=== PATIENT | male | born 1935 | race Caucasian/White ===

== ENCOUNTER → 2018-01-26 | Outpatient (CLI) | payer MEDICARE, BC ==
[~2018-01-26] MED LIST: ALBU8.5H8 INH; ASPI-630 PO; ATOR40TA PO; BUDE10.2 IH; DIGO125T PO; DOCU-109 PO; DUTA0.5C13 PO; IOHEXOL 300 MG/ML 75 ML VIAL. IV ONE; MEMA10TA20 PO; RANI15SY PO; RANI300T PO; SOTA80TA48 PO; TAMS0.4C2 PO; TIOT18CA IH; VILA10TA PO; WARF-31 PO; WARF4TAB7 PO
--- NOTE | 2018-01-26 09:14 | RAD ---
Chest CTA History: Shortness of breath, tobaccoism. Technique: After bolus of intravenous contrast, CT imaging was performed of the chest. Multiplanar reconstruction images to include MIP reconstruction images are submitted. Exposure: One or more of the following individualized dose reduction techniques were utilized for this examination: 1. Automated exposure control 2. Adjustment of the mA and/or kV according to patient size 3. Use of iterative reconstruction technique. Contrast: 75 cc Omnipaque 300 Comparison: None Findings: No pulmonary embolism is identified. There is coronary calcification. There is left electronic cardiac device, also leads coursing from the right. There is dilatation ascending thoracic aorta up to about 4.9 cm. Aortic root measures about 4.6 cm. There are some calcifications of the aortic valvular leaflets. Ascending thoracic aorta is tortuous, maximal caliber about 3.7 cm. No significantly enlarged nodes are identified of the chest. Visualized liver is small. Major airways are patent. There is small 0.5 cm right middle lobe nodule axial image 77 series 4, small 0.5 cm subpleural right middle lobe nodule axial image 86, and tiny 0.2 cm right middle lobe nodule axial image 92. Impression: 1. No pulmonary embolism is identified, also no pleural fluid or lobar infiltrate. 2. There is coronary calcification. There are some calcifications of aortic valvular leaflets. 3. There is aneurysmal dilatation ascending thoracic aorta up to about 4.9 cm, also ectatic and tortuous descending thoracic aorta. 4. Visualized liver is small. 5. There are small pulmonary nodules, optional 12 month follow-up as for incidental pulmonary nodules of this size as per revised Fleischner guidelines in a high risk patient. Electronically signed by: Isauro Camargo MD (01/26/2018 9:11 AM) [id number]
== END | disposition home or self-care (01) ==
LOC: CT 07:44
PROVIDERS: ATTEND Family Medicine
DX: I77.810 Thoracic aortic ectasia (principal); I10 Essential (primary) hypertension; E78.5 Hyperlipidemia, unspecified; R91.8 Other nonspecific abnormal finding of lung field
CPT/HCPCS: 71275; Q9967

== ENCOUNTER → 2021-05-08 | Outpatient (CLI) | payer MEDICARE, BC ==
[~2021-05-08] MED LIST changes: +ALBU2.5V8 INH; -ALBU8.5H8 INH; -DIGO125T PO; +DIGO125T17 PO; -DUTA0.5C13 PO; -IOHEXOL 300 MG/ML 75 ML VIAL. IV ONE; +IOHEXOL 350 MG/ML 100 ML VIAL. IV ONE; -MEMA10TA20 PO; +MEMA10TA56 PO; +WARF4TAB64 PO; -WARF4TAB7 PO; +[UNRECOGNIZED DRUG - CODE] PO
--- NOTE | 2021-05-08 12:43 | RAD ---
Examination: CT angiography abdomen pelvis with IV contrast HISTORY: History of abdominal aortic aneurysm COMPARISON: None available TECHNIQUE: Axial CT angiographic images of abdomen pelvis were performed with IV contrast. Coronal an d sagittal 3-D MIP reformats are performed. Exposure: One or more of the following individualized dose reduction techniques were utilized for thi s examination: 1. Automated exposure control 2. Adjustment of the mA and/or kV according to patient size 3. Use of iterative reconstruction technique FINDINGS: Mild bibasilar lung atelectasis or infiltrates. No evidence of free air identified in the abdomen. Th e liver, spleen, adrenals grossly appears unremarkable. The stomach is mildly distended. The visualiz ed pancreas grossly appears unremarkable. The small bowel is nondilated. Feces and gas noted in the c olon. Multiple sigmoid colon diverticulosis. The celiac artery, superior mesenteric artery are patent . The proximal portion of the inferior mesenteric artery demonstrates no contrast within likely occlu jannette. The distal portion of the inferior mesenteric artery demonstrates some contrast within likely p atent. Infrarenal abdominal aortic aneurysm identified measuring 5.9 cm in transverse dimension with the aortobiiliac stent graft. The graft demonstrates contrast within and is patent. No evidence of en doleak identified. The bilateral kidneys enhance symmetrically. Cystic structure identified in the left kidney measuring 2.9 cm likely cyst. Moderate degenerative changes lumbar spine. IMPRESSION: 1. Infrarenal abdominal aortic aneurysm with aortobiiliac stent graft in place. No evidence of endol eak identified. 2. Multiple sigmoid colon diverticulosis. Electronically signed by: Viktor Smith MD (05/08/2021 12:40 PM) [id number]
== END ==
LOC: CT 10:21
PROVIDERS: ATTEND Family Medicine
DX: I71.4 Abdominal aortic aneurysm, without rupture (principal); K57.30 Diverticulosis of large intestine without perforation or abscess without bleeding; K31.89 Other diseases of stomach and duodenum
CPT/HCPCS: 74174; Q9967

== ENCOUNTER 2021-06-25 13:35 | Emergency (ER) | payer MEDICARE, BC ==
[~2021-06-25] VITALS: Ht 182.9 cm; Wt 128.6 kg
[~2021-06-25 13:35] MED LIST changes: -IOHEXOL 350 MG/ML 100 ML VIAL. IV ONE
--- NOTE | 2021-06-25 13:56 | PHYS DOC ---
Adult General HPI HPI Patient is a 85-year-old male presenting with for confusion. Onset was 24 hours ago without any noteworthy trauma, mechanism of injury, ingestion, exposure, sick contact or recent travel. Nothing known makes better or worse. Patient denies any pain and states he is asymptomatic. admits patient has longstanding history of dementia but over past 24 hours he has been more confused than usual. He has not been aggressive but admits he has been talking and saying things which are not typical for him. He denies any auditory or visual hallucinations. No major changes in home medications. He is followed closely in outpatient setting by Dr. RECIO Review of Systems Review of Systems Fourteen body systems of review of systems have been reviewed. See HPI for pertinent positives and negative responses, other gustafson all other systems are negative, non-pertinent or non-contributory Allergies Allergies Allergies Coded Allergies Type Severity Reaction Last Updated Verified eszopiclone Allergy Intermediate Unknown 02/13/20 Yes flurazepam Allergy Intermediate Unknown 02/13/20 Yes ramelteon Allergy Intermediate Unknown 02/13/20 Yes temazepam Allergy Intermediate Unknown 02/13/20 Yes zaleplon Allergy Intermediate Unknown 02/13/20 Yes zolpidem Allergy Intermediate Unknown 02/13/20 Yes Physical Exam Physical Exam Constitutional: Well developed, well nourished, no acute distress, non-toxic appearance. HENT: Normocephalic, atraumatic, bilateral external ears normal, oropharynx moist, no oral exudates, nose normal. Eyes: PERRLA, EOMI, conjunctiva normal, no discharge. Neck: Normal range of motion, no tenderness, supple, no stridor. Cardiovascular: Heart rate regular, sinus rhythm, no murmurs rubs or gallops Lungs & Thorax: Bilateral breath sounds clear to auscultation Abdomen: Bowel sounds normal, soft, no tenderness, no masses, no pulsatile masses. Nonsurgical abdomen, no peritoneal signs Skin: Warm, dry, no erythema, no rash. Back: No tenderness, no CVA tenderness. Extremities: No tenderness, no cyanosis, no clubbing, ROM intact, no edema. Neurologic: Alert and oriented X 3, grossly normal motor & sensory function, no focal deficits noted. Psychologic: Affect normal, judgement normal, mood normal. Current Patient Data Vital Signs Vital Signs Date Time Temp Pulse Resp B/P (MAP) Pulse Ox O2 Delivery O2 Flow Rate FiO2 06/25/21 14:28 98.0 78 20 142/68 (92) 95 Room Air Vital Signs Date Time Temp Pulse Resp B/P (MAP) Pulse Ox O2 Delivery O2 Flow Rate FiO2 06/25/21 14:28 98.0 78 20 142/68 (92) 95 Room Air Lab Results Laboratory Tests Test 06/25/21 13:53 06/25/21 14:37 06/25/21 15:44 White Blood Count 9.7 x10^3/uL Red Blood Count 5.18 x10^6/uL Hemoglobin 14.7 g/dL Hematocrit 44.8 % Mean Corpuscular Volume 87 fL Mean Corpuscular Hemoglobin 28 pg Mean Corpuscular Hemoglobin Concent 33 g/dL Red Cell Distribution Width 16.4 % Platelet Count 141 x10^3/uL Neutrophils (%) (Auto) 74 % Lymphocytes (%) (Auto) 17 % Monocytes (%) (Auto) 7 % Eosinophils (%) (Auto) 1 % Basophils (%) (Auto) 1 % Neutrophils # (Auto) 7.2 x10^3uL Lymphocytes # (Auto) 1.7 x10^3/uL Monocytes # (Auto) 0.7 x10^3/uL Eosinophils # (Auto) 0.1 x10^3/uL Basophils # (Auto) 0.1 x10^3/uL Sodium Level 140 mmol/L Potassium Level 4.1 mmol/L Chloride Level 104 mmol/L Carbon Dioxide Level 32 mmol/L Anion Gap 4 Blood Urea Nitrogen 15 mg/dL Creatinine 1.4 mg/dL Estimated GFR (Cockcroft-Gault) 48.3 BUN/Creatinine Ratio 11 Glucose Level 110 mg/dL Calcium Level 8.3 mg/dL Total Bilirubin 0.7 mg/dL Aspartate Amino Transf (AST/SGOT) 21 U/L Alanine Aminotransferase (ALT/SGPT) 34 U/L Alkaline Phosphatase 126 U/L Troponin I Quantitative < 0.017 ng/mL Total Protein 7.3 g/dL Albumin 3.6 g/dL Albumin/Globulin Ratio 1.0 SARS-CoV-2 Antigen (Rapid) Negative Urine Collection Type Unknown Urine Color Yellow Urine Clarity Clear Urine pH 5.5 Urine Specific Langston 1.020 Urine Protein Neg Urine Glucose (UA) Neg mg/dL Urine Ketones (Stick) Neg mg/dL Urine Blood Neg Urine Nitrite Neg Urine Bilirubin Neg Urine Urobilinogen Dipstick 0.2 mg/dL Urine Leukocyte Esterase Neg Urine RBC 0 /HPF Urine WBC 1-4 /HPF Urine Squamous Epithelial Cells Mod /LPF Urine Bacteria 0 /HPF EKG EKG EKG ordered and interpreted by myself at 1533 hrs. as sinus rhythm at 80 bpm, prolonged MN interval at 278, prolonged QRS interval at 150 and prolonged QTC at 498 otherwise unremarkable intervals, left axis deviation, no STEMI Radiology/Procedures Radiology/Procedures EXAM: Chest, single view. HISTORY: Confusion. COMPARISON: None. FINDINGS: A frontal view of the chest is obtained. There is left basilar pleural thickening or small left pleural effusion. There is cardiomegaly. There is no consolidation. There is no pneumothorax. There is a left cardiac pacemaker defibrillator. There are abandoned leads from a prior right-sided pacemaker. IMPRESSION: Left basilar pleural thickening or small left pleural effusion and mild cardiomegaly. Electronically signed by: Yany Eli MD (06/25/2021 2:32 PM) [id number] ///////////////////////////////////////////////////////////////// CT HEAD/BRAIN WO Date: 06/25/2021 2:51 PM Clinical Indication: CONFUSION Comparison: None. Technique: 5 mm axial tomographic images were obtained of the head without contrast. These were viewed on brain and bone windows. One or more of the following dose reduction techniques were utilized: Automated exposure control (AEC), Adjustment of mA and/or kV according to patient size, Use of iterative reconstruction technique such as ASiR, CT scan done according to ALARA and image gently/image wisely Findings: Moderate generalized cerebral and cerebellar volume loss. Mild nonspecific periventricular hypoattenuation, most commonly seen with chronic small vessel ischemic disease. Calcified atherosclerosis of the bilateral cavernous and p araclinoid internal carotid arteries and intracranial vertebral arteries. Small area of left frontoparietal encephalomalacia. No intra- or extra-axial mass or fluid collection. No acute hemorrhage. The ventricles are normal in size, shape, and morphology. The stafford-white matter junction is normal. The subarachnoid cisterns are patent. The visualized paranasal sinuses are normal. The visualized portions of the orbits and globes are normal. The mastoid air cells are clear. The tailor fitter topogram shows no lytic lesion or fracture. Impression: No acute intracranial process. Small area of left frontoparietal encephalomalacia. Moderate cerebral volume loss. Mild chronic small vessel ischemic disease. Electronically signed by: Isauro Centeno MD (06/25/2021 2:56 PM) [facility] Heart Score C/O Chest Pain: No HEART Score for Chest Pain: HEART Score for Chest Pain Response (Comments) Value History Slighlty/Non-Suspicious 0 ECG Normal 0 Age > 65 2 Risk Factors >3 Risk Factors or Hx CAD 2 Troponin < Normal Limit 0 Total 4 Risk Factors: Risk Factors: DM, Current or recent (<one month) smoker, HTN, HLP, family history of CAD, obesity. Risk Scores: Risk Factors: DM, Current or recent (<one month) smoker, HTN, HLP, family history of CAD, obesity. Course & Med Decision Making Course & Med Decision Making ABCs unremarkable. I disclosed entirety of ER findings and discussed most likely diagnosis of confusion of unknown etiology. Patient also has underlying dementia, I question if he is at his baseline. He is accompanied by his who also appears to have some underlying dementia, there is confusion on patient's home medications and overall health. I disclosed entirety of ER findings that were nonconcerning for any emergent or surgical issues, I disclosed there is little indication for further diagnostic work-up and/or need for hospital admission, they agreed. As such, patient has good access to primary care physician and so, I discussed at length the need for close outpati ent follow-up to review today's ER visit. Strict return precautions were also discussed at length with verbalized understanding by both patient and . All questions and concerns addressed prior to ER departure and stable condition Dragon Disclaimer Dragon Disclaimer This electronic medical record was generated, in whole or in part, using a voice recognition dictation system. Departure Departure: Impression: Primary Impression: Confusion Additional Impression: Dementia Disposition: HOME / SELF CARE / HOMELESS Condition: STABLE Referrals: KITTY RECIO MD (PCP) Additional Instructions: As discussed prior to ER departure, your physical exam and comprehensive ER work-up was nonconcerning for any emergent or surgical issues. I did disclose he had a slight pleural effusion otherwise known as fluid on the lungs in the left hand side. This is nonemergent in nature and can be addressed with continued water pills in outpatient setting. You might require further work-up and potential lung doctor consultation but you will need to meet with your primary care provider to discuss this more. At this time there is no indication for hospital admission or antibiotics. If any concerning signs or symptoms present prior to outpatient follow-up please do not hesitate to come back for repeat evaluation. I recommend you contact your primary care provider immediately after ER departure to review need for close outpatient follow-up. It was a pleasure to take care of you and I wish you the best going forward Problem Qualifiers KEAGAN CARMONA DO Jun 25, 2021 13:56
[2021-06-25 14:28] VITALS: BP 142/68
[2021-06-25 14:33] LABS: BASO # 0.1 x10^3/uL (0.0-0.2); BASO % 1 % (0-3); EOS # 0.1 x10^3/uL (0.0-0.7); EOS % 1 % (0-3); HEMATOCRIT 44.8 % (39.0-53.0); HEMOGLOBIN 14.7 g/dL (13.0-17.5); LYMPH # 1.7 x10^3/uL (1.0-4.8); LYMPH % 17 % (24-48); MEAN CORPUSCULAR HEMOGLOBIN 28 pg (25-35); MEAN CORPUSCULAR HGB CONC 33 g/dL (31-37); MEAN CORPUSCULAR VOLUME 87 fL (79-100); MONO # 0.7 x10^3/uL (0.0-1.1); MONO % 7 % (0-9); NEUT # 7.2 x10^3uL (1.8-7.7); NEUT % 74 % (31-73); PLATELET COUNT 141 x10^3/uL (140-400); RED BLOOD COUNT 5.18 x10^6/uL (4.30-5.70); RED CELL DISTRIBUTION WIDTH 16.4 % (11.5-14.5); WHITE BLOOD COUNT 9.7 x10^3/uL (4.0-11.0)
--- NOTE | 2021-06-25 14:34 | RAD ---
EXAM: Chest, single view. HISTORY: Confusion. COMPARISON: None. FINDINGS: A frontal view of the chest is obtained. There is left basilar pleural thickening or small left pleural effusion. There is cardiomegaly. There is no consolidation. There is no pneumothorax. Th ere is a left cardiac pacemaker defibrillator. There are abandoned leads from a prior right-sided pac emaker. IMPRESSION: Left basilar pleural thickening or small left pleural effusion and mild cardiomegaly. Electronically signed by: Yany Eli MD (06/25/2021 2:32 PM) [id number]
[2021-06-25 14:40] LABS: CALCIUM 8.3 mg/dL (8.5-10.1); CREATININE 1.4 mg/dL (0.7-1.3); GFR 48.3; POTASSIUM 4.1 mmol/L (3.5-5.1)
[2021-06-25 14:46] LABS: ALBUMIN 3.6 g/dL (3.4-5.0); TOTAL BILIRUBIN 0.7 mg/dL (0.2-1.0); TOTAL PROTEIN 7.3 g/dL (6.4-8.2)
--- NOTE | 2021-06-25 14:59 | RAD ---
CT HEAD/BRAIN WO Date: 06/25/2021 2:51 PM Clinical Indication: CONFUSION Comparison: None. Technique: 5 mm axial tomographic images were obtained of the head without contrast. These were view ed on brain and bone windows. One or more of the following dose reduction techniques were utilized: A utomated exposure control (AEC), Adjustment of mA and/or kV according to patient size, Use of iterati ve reconstruction technique such as ASiR, CT scan done according to ALARA and image gently/image gustafson ly Findings: Moderate generalized cerebral and cerebellar volume loss. Mild nonspecific periventricular hypoattenu ation, most commonly seen with chronic small vessel ischemic disease. Calcified atherosclerosis of th e bilateral cavernous and paraclinoid internal carotid arteries and intracranial vertebral arteries. Small area of left frontoparietal encephalomalacia. No intra- or extra-axial mass or fluid collection. No acute hemorrhage. The ventricles are normal in size, shape, and morphology. The stafford-white matter junction is normal. The subarachnoid cisterns are patent. The visualized paranasal sinuses are normal. The visualized portions of the orbits and globes are no rmal. The mastoid air cells are clear. The county historian topogram shows no lytic lesion or fracture. Impression: No acute intracranial process. Small area of left frontoparietal encephalomalacia. Moderate cerebral volume loss. Mild chronic small vessel ischemic disease. Electronically signed by: Isauro Centeno MD (06/25/2021 2:56 PM) [facility]
--- NOTE | 2021-06-25 15:44 | EKG ---
[address] [address] Test Date: 2021-06-25 Test Time: 15:28:37 Pat Name: NAMRATA TURCIOS Department: Room: Gender: M Ceramic Tiler: ANTWON : 1935 Requested By: KEAGAN CARMONA Order Number: [id number] Reading MD: Measurements Intervals Barry Rate: 80 P: 0 DC: 278 QRS: -34 QRSD: 150 T: 67 QT: 428 QTc: 498 Interpretive Statements SINUS RHYTHM PROLONGED DC INTERVAL ABNORMAL LEFT AXIS DEVIATION LEFT BUNDLE BRANCH BLOCK ABNORMAL ECG RI6.02 No previous ECG available for comparison
[2021-06-25 16:29] LABS: BACTERIA,URINE 0 /HPF (0-FEW); BILIRUBIN,URINE NEG (NEG); CLARITY,URINE CLEAR; COLOR,URINE YELLOW; GLUCOSE,URINE NEG (NEG); NITRITE,URINE NEG (NEG); RBC,URINE 0 /HPF (0-2); SQUAMOUS EPITHELIAL CELL,UR MOD /LPF; UROBILINOGEN,URINE 0.2 mg/dL (0.2 mg/dL)
--- NOTE | 2021-06-27 09:15 | NUR ---
IP: Informed pt and of negative covid results. Verbalized understanding.
== END 2021-06-25 16:51 | disposition home or self-care (01) ==
LOC: ER 13:35
DX: F03.90 Unspecified dementia, unspecified severity, without behavioral disturbance, psychotic disturbance, mood disturbance, and anxiety (principal); R41.0 Disorientation, unspecified; Z20.822 Contact with and (suspected) exposure to COVID-19; Z88.8 Allergy status to other drugs, medicaments and biological substances
CPT/HCPCS: 36415; 70450; 71045; 80053; 81001; 84484; 85025; 87426; 93005; 99285; C9803; U0003